=== PATIENT | female | born 1960 | race Two or more races ===

== ENCOUNTER 2016-12-12 01:58 | Emergency (ER) | payer OTHER ==
[~2016-12-12] VITALS: Ht 162.6 cm; Wt 91.0 kg
[2016-12-12 02:00] VITALS: Ht 162.6 cm; Wt 91.0 kg
[2016-12-12] MEDS ORDERED: SOD CHLORIDE 0.9% 500 ML IV STA (02:00)
[2016-12-12] MEDS ORDERED: morphine 2 MG INJ IV STA (02:00)
[2016-12-12] MEDS ORDERED: ONDANSETRON 4 MG INJ IV STA (02:00)
[2016-12-12 02:37] LABS: ADD SCAN DIFF NO
--- NOTE | 2016-12-12 02:37 | RADRPT ---
PROCEDURE: Chest. CLINICAL INDICATION: Chest pain. TECHNIQUE: Single frontal view of the chest was obtained. COMPARISON: None. FINDINGS: The cardiac silhouette is within normal limits. The aortic arch is unremarkable. There is no focal consolidation, vascular congestion or pleural effusion. There is no pneumothorax. IMPRESSION: No evidence for active cardiopulmonary disease. .William aRo MD, MD Date Time Electronically viewed and signed by .William Rao MD, on 12/12/2016 02:37 .T/
[2016-12-12 02:38] LABS: BASOPHILS % 0.5 % (0.0-2.0); EOSINOPHILS # 0.1 10^3/ul (0.0-0.5); EOSINOPHILS % 1.3 % (0.0-7.0); HEMATOCRIT 36.8 % (37.0-47.0); HEMOGLOBIN 12.1 g/dl (12.0-16.0); LYMPHOCYTES # 1.5 10^3/ul (0.8-2.9); MEAN CORPUSCULAR HGB CONC 32.9 g/dl (32.0-37.0); MEAN CORPUSCULAR VOLUME 88.2 fl (82.0-101.0); MEAN PLATELET VOLUME 11.7 fl (7.4-10.4); MONOCYTE # 0.4 10^3/ul (0.3-0.9); MONOCYTES % 10.9 % (0.0-11.0); NEUTROPHIL # 1.8 10^3/ul (1.6-7.5); NEUTROPHILS % 48.3 % (39.0-77.0); PLATELET COUNT 207 10^3/UL (140-415); RED BLOOD COUNT 4.17 10^6/ul (4.20-5.40); RED CELL DISTRIBUTION WIDTH 13.9 % (11.5-14.5); WHITE BLOOD COUNT 3.8 10^3/ul (4.8-10.8)
[2016-12-12 02:50] LABS: INR 1.17; PT RATIO 1.2
[2016-12-12 02:51] LABS: PARTIAL THROMBOPLASTIN TIME 29.1 Sec (25.0-35.0)
[2016-12-12 02:56] LABS: ALANINE AMINOTRANSFERASE 27 IU/L (13-69); ALBUMIN 4.1 g/dl (3.3-4.9); ALBUMIN/GLOBULIN RATIO 1.28; ALKALINE PHOSPHATASE 91 IU/L (42-121); ANION GAP 13 (8-16); ASPARTATE AMINO TRANSFERASE 16 IU/L (15-46); BILIRUBIN,INDIRECT 0.1 mg/dl (0-1.1); BILIRUBIN,TOTAL 0.1 mg/dl (0.2-1.3); BLOOD UREA NITROGEN 18 mg/dl (7-20); CALCIUM 8.8 mg/dl (8.4-10.2); CARBON DIOXIDE 24 mmol/L (21-31); CHLORIDE 109 mmol/L (97-110); CREATININE 0.66 mg/dl (0.44-1.00); GLUCOSE 111 mg/dl (70-220); SODIUM 142 mmol/L (135-144); TOTAL PROTEIN 7.3 g/dl (6.1-8.1)
[2016-12-12 03:05] LABS: B-TYPE NATRIURETIC PEPTIDE 187 PG/ML (0-125)
[2016-12-12 03:09] LABS: TROPONIN-I < 0.012 ng/ml (0.00-0.12)
[2016-12-12] MEDS ORDERED: KETOROLAC 30 MG INJ IV STA (04:12)
--- NOTE | 2016-12-12 04:12 | ERA ---
ER Documentation Chief Complaint Date/Time DATE: 12/12/16 TIME: 04:11 Chief Complaint LT upper CP x 2 days, pressure, radiates to left shoulder/arm, reproducable HPI This is a 56-year-old left upper chest pain for 2 days. She has chest pressure that radiates to left shoulder and left arm. Pain is reproducible to touch. No fevers nausea no vomiting. No other current complaints. ROS All systems reviewed and are negative except as per history of present illness. Allergies Allergies: Coded Allergies: No Known Allergy (Unverified , 12/12/16) PMhx/Soc History of Surgery: Yes (BILATERAL LUMPECTOMY) Anesthesia Reaction: No Hx Neurological Disorder: No Hx Respiratory Disorders: No Hx Cardiac Disorders: No Hx Psychiatric Problems: No Hx Miscellaneous Medical Probl: No Hx Alcohol Use: No Hx Substance Use: No Hx Tobacco Use: No Smoking Status: Never smoker Physical Exam Vitals Vital Signs Date Time Temp Pulse Resp B/P Pulse Ox O2 Delivery O2 Flow Rate FiO2 12/12/16 02:00 97.6 55 18 178/88 96 Physical Exam Const: [] Head: Atraumatic Eyes: Normal Conjunctiva ENT: Normal External Ears, Nose and Mouth. Neck: Full range of motion..~ No meningismus. Resp: Clear to auscultation bilaterally Cardio: Regular rate and rhythm, no murmurs Abd: Soft, non tender, non distended. Normal bowel sounds Skin: No petechiae or rashes Back: No midline or flank tenderness Ext: No cyanosis, or edema Neur: Awake and alert Psych: Normal Mood and Affect Result Diagram: 12/12/16 0230 12/12/16 0230 Results 24 hrs Laboratory Tests Test 12/12/16 02:30 White Blood Count 3.810^3/ul Red Blood Count 4.1710^6/ul Hemoglobin 12.1g/dl Hematocrit 36.8% Mean Corpuscular Volume 88.2fl Mean Corpuscular Hemoglobin 29.0pg Mean Corpuscular Hemoglobin Concent 32.9g/dl Red Cell Distribution Width 13.9% Platelet Count 86393^3/UL Mean Platelet Volume 11.7fl Neutrophils % 48.3% Lymphocytes % 39.0% Monocytes % 10.9% Eosinophils % 1.3% Basophils % 0.5% Nucleated Red Blood Cells % 0.0/100WBC Neutrophils # 1.810^3/ul Lymphocytes # 1.510^3/ul Monocytes # 0.410^3/ul Eosinophils # 0.110^3/ul Basophils # 0.010^3/ul Nucleated Red Blood Cells # 0.010^3/ul Prothrombin Time 15.0Sec Prothrombin Time Ratio 1.2 INR International Normalized Ratio 1.17 Activated Partial Thromboplast Time 29.1Sec Sodium Level 142mmol/L Potassium Level 4.0mmol/L Chloride Level 109mmol/L Carbon Dioxide Level 24mmol/L Anion Gap 13 Blood Urea Nitrogen 18mg/dl Creatinine 0.66mg/dl Glucose Level 111mg/dl Calcium Level 8.8mg/dl Total Bilirubin 0.1mg/dl Direct Bilirubin 0.00mg/dl Indirect Bilirubin 0.1mg/dl Aspartate Amino Transf (AST/SGOT) 16IU/L Alanine Aminotransferase (ALT/SGPT) 27IU/L Alkaline Phosphatase 91IU/L Troponin I < 0.012ng/ml B-Type Natriuretic Peptide 187PG/ML Total Protein 7.3g/dl Albumin 4.1g/dl Globulin 3.20g/dl Albumin/Globulin Ratio 1.28 Lipase 148U/L Current Medications Medications (Trade) Dose Ordered Sig/Manuel Route PRN Reason Start Time Stop Time Status Last Admin Dose Admin Sodium Chloride (NS) 500 ml @ 500 mls/hr Q1H STAT IV 12/12/16 02:00 12/12/16 02:59 DC 12/12/16 02:31 Morphine Sulfate (morphine) 2 mg ONCE STAT IV 12/12/16 02:00 12/12/16 02:02 DC 12/12/16 02:30 Ondansetron HCl (Zofran Inj) 4 mg ONCE STAT IV 12/12/16 02:00 12/12/16 02:02 DC 12/12/16 02:30 Procedures/MDM EKG: Rate/Rhythm: [Normal Sinus Rhythm] QRS, ST, T-waves: [No changes consistent w/ acute ischemia] Impression: [No evidence of ischemia or arrhythmia] Chest X-ray 1V Interpreted by me: Soft Tissue: No acute abnormalities Bones: No acute abnormalities Mediastinum/Cardiac Silhouette/Lungs: [No acute abnormalities] Patient's thoracic symptoms have stabilized while in the department and are stable for outpatient follow up. Exam and work up not consistent w/ ischemia, arrhythmia, PE or dissection. Departure Diagnosis: Primary Impression: Chest pain Qualified Code: R07.9 - Chest pain, unspecified type Condition: Stable GERDA GRAY Dec 12, 2016 04:12
[2016-12-12] MEDS ORDERED: NAPR-260 PO (04:18)
[2016-12-12] MEDS ORDERED: DIAZ-90 PO (04:18)
[2016-12-12 04:26] VITALS: BP 139/75; PULSE 52; RESP 16; TEMP 98
== END 2016-12-12 04:32 | disposition home or self-care (01) ==
LOC: E/R 01:58
DX: R07.89 Other chest pain (principal)
CPT/HCPCS: 36415; 71010; 80053; 83690; 83880; 84484; 85025; 85610; 85730; 93005; 96374; 96375; J1885; J2270; J2405; J7040; Z7502